=== PATIENT | male | born 1985 | race Caucasian/White ===

== ENCOUNTER 2016-09-30 14:23 | Emergency (ER) | payer MEDICAID, OTHER ==
[~2016-09-30] VITALS: Ht 182.9 cm; Wt 136.0 kg
[~2016-09-30 14:23] MED LIST: METF500T4; RISP1
[2016-09-30 18:07] VITALS: BP 149/67
== END 2016-09-30 18:41 | disposition left against medical advice (07) ==
LOC: ER 14:42
DX: F91.9 Conduct disorder, unspecified (principal); F43.10 Post-traumatic stress disorder, unspecified; R56.9 Unspecified convulsions; F17.200 Nicotine dependence, unspecified, uncomplicated; F15.10 Other stimulant abuse, uncomplicated
CPT/HCPCS: 99284

== ENCOUNTER 2016-11-24 12:16 | Emergency (ER) | payer OTHER ==
[~2016-11-24] VITALS: Ht 175.3 cm; Wt 148.0 kg
[2016-11-24 14:18] LABS: CLARITY URINE CLEAR (CLEAR); COLOR URINE YELLOW (YELLOW); GLUCOSE URINE NEGATIVE (NEGATIVE); KETONES URINE NEGATIVE (NEGATIVE); LEUKOCYTE ESTERASE URINE TRACE (NEGATIVE); NITRITE URINE NEGATIVE (NEGATIVE); OCCULT BLOOD URINE NEGATIVE (NEGATIVE); PROTEIN URINE NEGATIVE (NEGATIVE); SPECIFIC GRAVITY URINE 1.026 (1.005-1.030); UROBILINOGEN URINE 0.2 E.U./dL (0.2-1.0)
[2016-11-24 14:57] LABS: *AMPHETAMINES SCREEN URINE NEGATIVE (NEGATIVE); *BARBITURATES SCREEN URINE NEGATIVE (NEGATIVE); *BENZODIAZEPINES SCREEN URINE NEGATIVE (NEGATIVE); *COCAINE SCREEN URINE NEGATIVE (NEGATIVE); CANNABINOID URINE SCREEN NEGATIVE (NEGATIVE); METHADONE URINE SCREEN NEGATIVE (NEGATIVE); OPIATES URINE SCREEN NEGATIVE (NEGATIVE); PHENCYCLIDINE URINE SCREEN NEGATIVE (NEGATIVE)
[2016-11-24 16:07] LABS: BASOPHILS % 0.2 % (0.0-2.0); HEMATOCRIT. 44.5 % (42.0-52.0); LYMPHOCYTES % 19.8 % (20.0-50.0); MEAN CORPUSCULAR HEMOGLOBIN 30.8 pg (28.0-32.0); MEAN PLATELET VOLUME 9.9 fl (7.4-10.4); MONOCYTES % 7.1 % (2.0-8.0); NEUTROPHILS % 70.9 % (40.0-76.0); PLATELET 187 x1000/uL (130-400); RED BLOOD CELL COUNT 4.89 mill/uL (4.7-6.1); RED CELL DISTRIBUTION WIDTH 13.8 % (11.6-14.6)
[2016-11-24 16:26] LABS: CARBON DIOXIDE 29 mEq/L (21-32); CHLORIDE 108 mEq/L (98-107); ETHANOL BLOOD < 10 mg/dL
[2016-11-25 09:19] VITALS: BP 135/72
== END 2016-11-25 10:39 | disposition home or self-care (01) ==
LOC: ER 12:26
DX: R44.1 Visual hallucinations (principal); N39.0 Urinary tract infection, site not specified; Z59.0 Homelessness; F15.10 Other stimulant abuse, uncomplicated; Z91.09 Other allergy status, other than to drugs and biological substances
CPT/HCPCS: 36415; 80053; 80305; 80307; 80329; 81001; 85025; 99284; G0482

== ENCOUNTER 2016-11-30 05:49 | Emergency (ER) | payer SELFPAY ==
[~2016-11-30] VITALS: Ht 188 cm; Wt 160.0 kg
[2016-11-30 08:52] LABS: BASOPHILS % 0.1 % (0.0-2.0); EOSINOPHILS % 1.7 % (0.0-5.0); HEMATOCRIT. 44.2 % (42.0-52.0); HEMOGLOBIN. 14.7 g/dL (14.0-18.0); LYMPHOCYTES % 14.9 % (20.0-50.0); MEAN CORPUSCULAR HEMOGLOBIN 29.9 pg (28.0-32.0); MEAN CORPUSCULAR VOLUME 89.7 fL (80.0-94.0); MEAN PLATELET VOLUME 9.3 fl (7.4-10.4); MONOCYTES % 6.2 % (2.0-8.0); NEUTROPHILS % 77.1 % (40.0-76.0); PLATELET 208 x1000/uL (130-400); RED BLOOD CELL COUNT 4.93 mill/uL (4.7-6.1); RED CELL DISTRIBUTION WIDTH 13.8 % (11.6-14.6)
[2016-11-30 08:56] LABS: CHLORIDE 103 mEq/L (98-107)
[2016-11-30 08:58] LABS: PROTHROMBIN TIME 10.9 sec
[2016-11-30 09:04] LABS: CARBON DIOXIDE 34 mEq/L (21-32)
[2016-11-30 09:52] LABS: CLARITY URINE CLEAR (CLEAR); COLOR URINE YELLOW (YELLOW); KETONES URINE NEGATIVE (NEGATIVE); LEUKOCYTE ESTERASE URINE NEGATIVE (NEGATIVE); NITRITE URINE NEGATIVE (NEGATIVE); OCCULT BLOOD URINE NEGATIVE (NEGATIVE); PH URINE 6.5 (4.5-8.0); PROTEIN URINE NEGATIVE (NEGATIVE); SPECIFIC GRAVITY URINE 1.015 (1.005-1.030); UROBILINOGEN URINE 0.2 E.U./dL (0.2-1.0)
[2016-11-30 10:19] VITALS: BP 124/71
== END 2016-11-30 10:40 | disposition home or self-care (01) ==
LOC: ER 05:49
DX: T69.022A Immersion foot, left foot, initial encounter (principal); R56.9 Unspecified convulsions; M54.2 Cervicalgia; F17.200 Nicotine dependence, unspecified, uncomplicated; Z59.0 Homelessness; Z88.8 Allergy status to other drugs, medicaments and biological substances; W18.39XA Other fall on same level, initial encounter; Y93.89 Activity, other specified; Y92.89 Other specified places as the place of occurrence of the external cause; Y99.8 Other external cause status
CPT/HCPCS: 36415; 71010; 80053; 81003; 83605; 83690; 85025; 85610; 99285; Z7610

== ENCOUNTER 2016-12-14 12:33 | Emergency (ER) | payer SELFPAY ==
[~2016-12-14] VITALS: Ht 177.8 cm; Wt 120.0 kg
[2016-12-14 13:43] VITALS: BP 125/68
== END 2016-12-14 13:44 | disposition home or self-care (01) ==
LOC: ER 12:50
DX: M79.605 Pain in left leg (principal); M79.604 Pain in right leg; E66.9 Obesity, unspecified; F20.9 Schizophrenia, unspecified; R20.0 Anesthesia of skin; Z59.0 Homelessness; Z88.8 Allergy status to other drugs, medicaments and biological substances
CPT/HCPCS: 99284

== ENCOUNTER 2018-06-09 21:47 | Emergency (ER) | payer MEDICAID ==
[~2018-06-09] VITALS: Ht 185.4 cm; Wt 146.0 kg
[~2018-06-09 21:47] MED LIST changes: +METF-414; -METF500T4
[2018-06-10 00:01] LABS: BASOPHILS % 0.4 % (0.0-2.0); EOSINOPHILS % 1.9 % (0.0-5.0); HEMATOCRIT. 45.4 % (42.0-52.0); HEMOGLOBIN. 15.1 g/dL (14.0-18.0); LYMPHOCYTES % 18.6 % (20.0-50.0); MEAN CORPUSCULAR HEMOGLOBIN 31.3 pg (28.0-32.0); MEAN CORPUSCULAR VOLUME 94.1 fL (80.0-94.0); MEAN PLATELET VOLUME 8.9 fl (7.4-10.4); MONOCYTES % 9.7 % (2.0-8.0); NEUTROPHILS % 69.4 % (40.0-76.0); PLATELET 193 x1000/uL (130-400); RED BLOOD CELL COUNT 4.83 mill/uL (4.7-6.1); RED CELL DISTRIBUTION WIDTH 14.6 % (11.6-14.6)
[2018-06-10 00:23] LABS: CHLORIDE 105 mEq/L (98-107)
[2018-06-10 00:28] LABS: ETHANOL BLOOD < 10 mg/dL
[2018-06-10] MEDS ORDERED: LORAZEPAM 1MG TABLET PO ONE (00:30)
[2018-06-10] MEDS ORDERED: BUSPIRONE HCL 10MG TABLET PO ONE (00:30)
[2018-06-10] MEDS ORDERED: SODIUM CHLORIDE 0.9% 1,000 ML IV ONE (00:38)
[2018-06-10] MEDS ORDERED: PHENYTOIN SODIUM 1,000 MG in SODIUM CHLORIDE 0.9% 100 ML IV ONE (01:00)
[2018-06-10 02:46] LABS: *BENZODIAZEPINES SCREEN URINE NEGATIVE (NEGATIVE); *COCAINE SCREEN URINE NEGATIVE (NEGATIVE)
[2018-06-10 02:47] LABS: *AMPHETAMINES SCREEN URINE NEGATIVE (NEGATIVE); *BARBITURATES SCREEN URINE NEGATIVE (NEGATIVE); CANNABINOID URINE SCREEN PRESUMTIVE POSITIVE (NEGATIVE); METHADONE URINE SCREEN NEGATIVE (NEGATIVE); OPIATES URINE SCREEN NEGATIVE (NEGATIVE); PHENCYCLIDINE URINE SCREEN NEGATIVE (NEGATIVE)
[2018-06-10 08:00] VITALS: BP 125/70
== END 2018-06-10 10:43 | disposition home or self-care (01) ==
LOC: ER 21:47
DX: R45.851 Suicidal ideations (principal); F31.89 Other bipolar disorder; E66.01 Morbid (severe) obesity due to excess calories; R56.9 Unspecified convulsions; R03.0 Elevated blood-pressure reading, without diagnosis of hypertension; F43.10 Post-traumatic stress disorder, unspecified; V89.2XXD Person injured in unspecified motor-vehicle accident, traffic, subsequent encounter; Z88.8 Allergy status to other drugs, medicaments and biological substances; Z91.19 Patient's noncompliance with other medical treatment and regimen
CPT/HCPCS: 36415; 80048; 80185; 80305; 80307; 80329; 85025; 96365; 99284; G0482; J1165; J7030; J7050

== ENCOUNTER 2018-11-18 14:10 | Emergency (ER) | payer MEDICAID ==
[~2018-11-18] VITALS: Ht 182.9 cm; Wt 160.0 kg
[2018-11-18 15:59] LABS: CHLORIDE 106 mEq/L (98-107)
[2018-11-18 16:02] LABS: BASOPHILS % 0.5 % (0.0-2.0); EOSINOPHILS % 3.4 % (0.0-5.0); HEMATOCRIT. 41.7 % (42.0-52.0); HEMOGLOBIN. 14.3 g/dL (14.0-18.0); LYMPHOCYTES % 18.6 % (20.0-50.0); MEAN PLATELET VOLUME 9.4 fl (7.4-10.4); MONOCYTES % 6.4 % (2.0-8.0); NEUTROPHILS % 71.1 % (40.0-76.0); PLATELET 193 x1000/uL (130-400); RED BLOOD CELL COUNT 4.48 mill/uL (4.7-6.1)
[2018-11-18 16:04] LABS: ETHANOL BLOOD < 10 mg/dL
[2018-11-18 17:05] LABS: *AMPHETAMINES SCREEN URINE NEGATIVE (NEGATIVE); *BARBITURATES SCREEN URINE NEGATIVE (NEGATIVE); *BENZODIAZEPINES SCREEN URINE NEGATIVE (NEGATIVE); *COCAINE SCREEN URINE NEGATIVE (NEGATIVE); CANNABINOID URINE SCREEN PRESUMTIVE POSITIVE (NEGATIVE)
[2018-11-18 17:06] LABS: METHADONE URINE SCREEN NEGATIVE (NEGATIVE); OPIATES URINE SCREEN NEGATIVE (NEGATIVE); PHENCYCLIDINE URINE SCREEN NEGATIVE (NEGATIVE)
[2018-11-19 11:20] VITALS: BP 147/76
== END 2018-11-19 11:22 | disposition home or self-care (01) ==
LOC: ER 14:10
DX: R45.851 Suicidal ideations (principal); F32.9 Major depressive disorder, single episode, unspecified; Z59.0 Homelessness; Z88.8 Allergy status to other drugs, medicaments and biological substances
CPT/HCPCS: 36415; 80048; 80305; 80307; 80320; 80329; 85025; 99284; Z7610; G0480

== ENCOUNTER 2018-12-19 12:35 | Emergency (ER) | payer MEDICAID ==
[~2018-12-19] VITALS: Ht 182.9 cm; Wt 167.0 kg
[~2018-12-19 12:35] MED LIST changes: +PHEN100C4 PO
[2018-12-19] MEDS ORDERED: SODIUM CHLORIDE 0.9% 1,000 ML IV ONE (12:50)
[2018-12-19] MEDS ORDERED: ONDANSETRON 4MG ODT PO STA (12:50)
[2018-12-19] MEDS ORDERED: MECLIZINE 25MG TABLET PO ONE (13:00)
[2018-12-19 13:52] LABS: BASOPHILS % 0.4 % (0.0-2.0); EOSINOPHILS % 0.6 % (0.0-5.0); HEMATOCRIT. 46.1 % (42.0-52.0); HEMOGLOBIN. 15.6 g/dL (14.0-18.0); LYMPHOCYTES % 10.6 % (20.0-50.0); MEAN CORPUSCULAR HEMOGLOBIN 31.6 pg (28.0-32.0); MEAN CORPUSCULAR VOLUME 93.6 fL (80.0-94.0); MEAN PLATELET VOLUME 9.8 fl (7.4-10.4); MONOCYTES % 7.5 % (2.0-8.0); NEUTROPHILS % 80.9 % (40.0-76.0); PLATELET 233 x1000/uL (130-400); RED BLOOD CELL COUNT 4.93 mill/uL (4.7-6.1); RED CELL DISTRIBUTION WIDTH 13.8 % (11.6-14.6)
[2018-12-19 13:57] LABS: CHLORIDE 102 mEq/L (98-107)
[2018-12-19 13:59] LABS: PARTIAL THROMBOPLASTIN TIME 29.8 sec (23.4-31.0); PROTHROMBIN TIME 10.7 sec (9.6-11.0)
[2018-12-19 13:59] LABS: CLARITY URINE CLOUDY (CLEAR); COLOR URINE YELLOW (YELLOW); KETONES URINE TRACE (NEGATIVE); LEUKOCYTE ESTERASE URINE TRACE (NEGATIVE); NITRITE URINE NEGATIVE (NEGATIVE); OCCULT BLOOD URINE NEGATIVE (NEGATIVE); PROTEIN URINE TRACE (NEGATIVE); SPECIFIC GRAVITY URINE 1.028 (1.005-1.030)
[2018-12-19 14:05] LABS: ETHANOL BLOOD < 10 mg/dL
[2018-12-19 14:20] LABS: *AMPHETAMINES SCREEN URINE PRESUMTIVE POSITIVE (NEGATIVE); *BARBITURATES SCREEN URINE NEGATIVE (NEGATIVE); *BENZODIAZEPINES SCREEN URINE NEGATIVE (NEGATIVE); *COCAINE SCREEN URINE NEGATIVE (NEGATIVE); METHADONE URINE SCREEN NEGATIVE (NEGATIVE); OPIATES URINE SCREEN NEGATIVE (NEGATIVE); PHENCYCLIDINE URINE SCREEN NEGATIVE (NEGATIVE)
[2018-12-19 14:21] LABS: CANNABINOID URINE SCREEN PRESUMTIVE POSITIVE (NEGATIVE)
[2018-12-19] MEDS ORDERED: POTASSIUM CHLORIDE 20MEQ TABLET SR PO ONE (14:45)
[2018-12-19] MEDS ORDERED: PHENYTOIN SODIUM 1,000 MG in SODIUM CHLORIDE 0.9% 100 ML IV ONE (14:45)
[2018-12-19 17:20] VITALS: BP 145/68
== END 2018-12-19 17:30 | disposition home or self-care (01) ==
LOC: ER 12:35
DX: R42 Dizziness and giddiness (principal); R11.10 Vomiting, unspecified; F15.10 Other stimulant abuse, uncomplicated; E87.6 Hypokalemia; E66.9 Obesity, unspecified; R03.0 Elevated blood-pressure reading, without diagnosis of hypertension; J45.909 Unspecified asthma, uncomplicated; R56.9 Unspecified convulsions; Z91.19 Patient's noncompliance with other medical treatment and regimen
CPT/HCPCS: 36415; 70450; 71045; 80053; 80185; 80305; 80320; 81003; 83880; 84484; 85025; 85610; 85730; 93005; 96361; 96365; 99284; J1165; J7030; J7050; J8597; Q0162; G0480

== ENCOUNTER 2018-12-24 22:42 | Emergency (ER) | payer MEDICAID ==
[~2018-12-24] VITALS: Ht 170.2 cm; Wt 159.0 kg
[2018-12-24 23:50] LABS: CLARITY URINE CLEAR (CLEAR); COLOR URINE DARK YELLOW (YELLOW); KETONES URINE TRACE (NEGATIVE); LEUKOCYTE ESTERASE URINE NEGATIVE (NEGATIVE); NITRITE URINE NEGATIVE (NEGATIVE); OCCULT BLOOD URINE NEGATIVE (NEGATIVE); PH URINE 5.5 (4.5-8.0); PROTEIN URINE 1+ (NEGATIVE); SPECIFIC GRAVITY URINE 1.037 (1.005-1.030)
[2018-12-24 23:57] LABS: BASOPHILS % 0.4 % (0.0-2.0); EOSINOPHILS % 1.1 % (0.0-5.0); HEMATOCRIT. 42.6 % (42.0-52.0); HEMOGLOBIN. 14.5 g/dL (14.0-18.0); LYMPHOCYTES % 13.5 % (20.0-50.0); MEAN CORPUSCULAR HEMOGLOBIN 31.9 pg (28.0-32.0); MEAN CORPUSCULAR VOLUME 93.8 fL (80.0-94.0); MEAN PLATELET VOLUME 8.8 fl (7.4-10.4); MONOCYTES % 5.7 % (2.0-8.0); NEUTROPHILS % 79.3 % (40.0-76.0); PLATELET 246 x1000/uL (130-400); RED BLOOD CELL COUNT 4.54 mill/uL (4.7-6.1); RED CELL DISTRIBUTION WIDTH 13.5 % (11.6-14.6)
[2018-12-25 00:03] LABS: CHLORIDE 105 mEq/L (98-107)
[2018-12-25 00:07] LABS: ETHANOL BLOOD < 10 mg/dL
[2018-12-25 00:20] LABS: *AMPHETAMINES SCREEN URINE NEGATIVE (NEGATIVE); *BARBITURATES SCREEN URINE NEGATIVE (NEGATIVE); *BENZODIAZEPINES SCREEN URINE NEGATIVE (NEGATIVE); *COCAINE SCREEN URINE NEGATIVE (NEGATIVE); METHADONE URINE SCREEN NEGATIVE (NEGATIVE); OPIATES URINE SCREEN NEGATIVE (NEGATIVE); PHENCYCLIDINE URINE SCREEN NEGATIVE (NEGATIVE)
[2018-12-25 00:21] LABS: CANNABINOID URINE SCREEN PRESUMTIVE POSITIVE (NEGATIVE)
[2018-12-26] MEDS ORDERED: LORAZEPAM 2MG/ML CPJ IM STA (15:01)
[2018-12-26] MEDS ORDERED: OLANZAPINE 10 MG/VIAL IM STA (15:01)
[2018-12-27 12:14] VITALS: BP 134/62
[2018-12-27] MEDS ORDERED: LORAZEPAM 1MG TABLET PO ONE ×2 (15:00→17:30)
== END 2018-12-27 18:48 | disposition home or self-care (01) ==
LOC: ER 22:42
DX: R45.851 Suicidal ideations (principal); R44.0 Auditory hallucinations; F12.10 Cannabis abuse, uncomplicated; J45.909 Unspecified asthma, uncomplicated; R56.9 Unspecified convulsions; Z88.8 Allergy status to other drugs, medicaments and biological substances
CPT/HCPCS: 36415; 80305; 80320; 96372; 99284; G0480

== ENCOUNTER 2018-12-31 06:48 | Emergency (ER) | payer MEDICAID ==
[~2018-12-31] VITALS: Ht 170.2 cm; Wt 159.0 kg
[2018-12-31] MEDS ORDERED: PHENYTOIN SODIUM 1000MG in SODIUM CHLORIDE 0.9% 100ML IV ONE (07:30)
[2018-12-31 09:17] LABS: CLARITY URINE CLEAR (CLEAR); COLOR URINE YELLOW (YELLOW); KETONES URINE NEGATIVE (NEGATIVE); LEUKOCYTE ESTERASE URINE NEGATIVE (NEGATIVE); NITRITE URINE NEGATIVE (NEGATIVE); OCCULT BLOOD URINE NEGATIVE (NEGATIVE); PROTEIN URINE NEGATIVE (NEGATIVE); SPECIFIC GRAVITY URINE 1.028 (1.005-1.030); UROBILINOGEN URINE 0.2 E.U./dL (0.2-1.0)
[2018-12-31 09:52] LABS: *AMPHETAMINES SCREEN URINE NEGATIVE (NEGATIVE); *BARBITURATES SCREEN URINE NEGATIVE (NEGATIVE); *BENZODIAZEPINES SCREEN URINE NEGATIVE (NEGATIVE)
[2018-12-31 09:53] LABS: *COCAINE SCREEN URINE NEGATIVE (NEGATIVE); CANNABINOID URINE SCREEN PRESUMTIVE POSITIVE (NEGATIVE); METHADONE URINE SCREEN NEGATIVE (NEGATIVE); OPIATES URINE SCREEN NEGATIVE (NEGATIVE); PHENCYCLIDINE URINE SCREEN NEGATIVE (NEGATIVE)
[2018-12-31 10:27] LABS: BASOPHILS % 0.5 % (0.0-2.0); CHLORIDE 103 mEq/L (98-107); EOSINOPHILS % 1.5 % (0.0-5.0); HEMATOCRIT. 41.6 % (42.0-52.0); HEMOGLOBIN. 14.3 g/dL (14.0-18.0); LYMPHOCYTES % 18.9 % (20.0-50.0); MEAN CORPUSCULAR VOLUME 93.3 fL (80.0-94.0); MEAN PLATELET VOLUME 8.9 fl (7.4-10.4); MONOCYTES % 5.9 % (2.0-8.0); NEUTROPHILS % 73.2 % (40.0-76.0); PLATELET 254 x1000/uL (130-400); RED BLOOD CELL COUNT 4.46 mill/uL (4.7-6.1); RED CELL DISTRIBUTION WIDTH 13.9 % (11.6-14.6)
[2018-12-31 10:32] LABS: ETHANOL BLOOD < 10 mg/dL
[2018-12-31] MEDS ORDERED: PHENYTOIN SODIUM 500 MG in SODIUM CHLORIDE 0.9% 50 ML IV ONE (20:30)
[2019-01-01] MEDS ORDERED: LORAZEPAM 2MG/ML CPJ IV ONE (08:15)
[2019-01-01] MEDS ORDERED: PHENYTOIN SODIUM EXTENDED 100MG CAPSULE PO ONE (09:00)
[2019-01-01] MEDS ORDERED: HALOPERIDOL 5MG TABLET PO ONE (09:00)
[2019-01-01] MEDS ORDERED: PHENYTOIN SODIUM 1,500 MG in SODIUM CHLORIDE 0.9% 100 ML IV ONE (09:45)
[2019-01-01] MEDS ORDERED: PHENYTOIN SODIUM 1,500 MG in SODIUM CHLORIDE 0.9% 100 ML IV NR (09:45)
[2019-01-01] MEDS ORDERED: SODIUM CHLORIDE 0.9% 1000ML BAG (SEPSIS BOLUS) IV ONE (15:00)
[2019-01-02] MEDS ORDERED: PHENYTOIN SODIUM 500 MG in SODIUM CHLORIDE 0.9% 50 ML IV ONE (06:30)
[2019-01-02] MEDS ORDERED: PHENYTOIN SODIUM EXTENDED 100MG CAPSULE PO ONE (07:15)
[2019-01-02] MEDS ORDERED: LITHIUM CARBONATE 150 MG CAPSULE PO STA (10:21)
[2019-01-02 11:17] VITALS: BP 128/64
== END 2019-01-02 12:09 | disposition home or self-care (01) ==
LOC: ER 06:48
DX: R56.9 Unspecified convulsions (principal); F20.9 Schizophrenia, unspecified; F31.9 Bipolar disorder, unspecified; Z59.0 Homelessness
CPT/HCPCS: 36415; 80053; 80185; 80305; 80320; 81003; 85025; 96365; 96366; 96367; 96375; 99284; J1165; J7050; G0480

== ENCOUNTER 2019-01-06 20:45 | Emergency (ER) | payer MEDICAID ==
[~2019-01-06] VITALS: Ht 182.9 cm; Wt 136.0 kg
[2019-01-06] MEDS ORDERED: SODIUM CHLORIDE 0.9% 1,000 ML IV ONE (21:15)
[2019-01-06] MEDS ORDERED: ONDANSETRON HCL 4MG/2ML INJ IV STA (21:15)
[2019-01-06] MEDS ORDERED: LEVETIRACETAM 500MG PREMIX 100 ML IV ONE (21:15)
[2019-01-06 22:22] LABS: BASOPHILS % 0.4 % (0.0-2.0); EOSINOPHILS % 1.5 % (0.0-5.0); HEMATOCRIT. 42.7 % (42.0-52.0); HEMOGLOBIN. 14.3 g/dL (14.0-18.0); LYMPHOCYTES % 12.5 % (20.0-50.0); MEAN CORPUSCULAR HEMOGLOBIN 31.4 pg (28.0-32.0); MEAN CORPUSCULAR VOLUME 93.3 fL (80.0-94.0); MEAN PLATELET VOLUME 8.8 fl (7.4-10.4); MONOCYTES % 5.7 % (2.0-8.0); NEUTROPHILS % 79.9 % (40.0-76.0); PLATELET 263 x1000/uL (130-400); RED BLOOD CELL COUNT 4.57 mill/uL (4.7-6.1); RED CELL DISTRIBUTION WIDTH 13.6 % (11.6-14.6)
[2019-01-06 22:27] LABS: CHLORIDE 105 mEq/L (98-107)
[2019-01-06 22:30] LABS: ETHANOL BLOOD < 10 mg/dL
[2019-01-06 22:34] LABS: CREATINE KINASE 58 IU/L (39-308)
[2019-01-06 22:36] LABS: CARBAMAZEPINE < 0.5 ug/mL (4-12); PHENOBARBITAL < 2.1 ug/mL (15.0-40.0); VALPROIC ACID < 3.0 ug/mL (50-100)
[2019-01-06 22:39] LABS: CLARITY URINE TURBID (CLEAR); COLOR URINE YELLOW (YELLOW); KETONES URINE TRACE (NEGATIVE); LEUKOCYTE ESTERASE URINE NEGATIVE (NEGATIVE); NITRITE URINE NEGATIVE (NEGATIVE); OCCULT BLOOD URINE NEGATIVE (NEGATIVE); PH URINE 5.5 (4.5-8.0); PROTEIN URINE TRACE (NEGATIVE); SPECIFIC GRAVITY URINE 1.028 (1.005-1.030)
[2019-01-06 23:06] LABS: *COCAINE SCREEN URINE NEGATIVE (NEGATIVE)
[2019-01-06 23:07] LABS: *AMPHETAMINES SCREEN URINE NEGATIVE (NEGATIVE); *BARBITURATES SCREEN URINE NEGATIVE (NEGATIVE); *BENZODIAZEPINES SCREEN URINE NEGATIVE (NEGATIVE); CANNABINOID URINE SCREEN PRESUMTIVE POSITIVE (NEGATIVE); METHADONE URINE SCREEN NEGATIVE (NEGATIVE); OPIATES URINE SCREEN NEGATIVE (NEGATIVE); PHENCYCLIDINE URINE SCREEN NEGATIVE (NEGATIVE)
[2019-01-07] MEDS ORDERED: CLOTRIMAZOLE/BETAMETHASONE 1/0.05% CREAM 15GM TOP SCH (09:00)
[2019-01-07 14:30] VITALS: BP 120/68
== END 2019-01-07 14:30 | disposition home or self-care (01) ==
LOC: ER 20:45
DX: R56.9 Unspecified convulsions (principal); N39.0 Urinary tract infection, site not specified; E86.0 Dehydration; F12.10 Cannabis abuse, uncomplicated; B37.9 Candidiasis, unspecified; F17.210 Nicotine dependence, cigarettes, uncomplicated; Z59.0 Homelessness; Z88.8 Allergy status to other drugs, medicaments and biological substances; Z91.14 Patient's other noncompliance with medication regimen
CPT/HCPCS: 36415; 80053; 80156; 80165; 80184; 80185; 80305; 80320; 81003; 82140; 82550; 84443; 85025; 93005; 96365; 96375; 99284; J1953; J2405; J7030; G0480

== ENCOUNTER 2019-01-15 19:59 | Emergency (ER) | payer MEDICAID ==
[~2019-01-15] VITALS: Ht 188 cm; Wt 137.0 kg
[2019-01-16 07:42] VITALS: BP 111/62
== END 2019-01-16 10:35 | disposition home or self-care (01) ==
LOC: ER 19:59
DX: F32.9 Major depressive disorder, single episode, unspecified (principal); F20.9 Schizophrenia, unspecified; R56.9 Unspecified convulsions; F15.10 Other stimulant abuse, uncomplicated; F17.290 Nicotine dependence, other tobacco product, uncomplicated; Z76.5 Malingerer [conscious simulation]; Z88.8 Allergy status to other drugs, medicaments and biological substances; Z79.899 Other long term (current) drug therapy
CPT/HCPCS: 99284; 99406

== ENCOUNTER 2019-02-13 19:19 | Emergency (ER) | payer MEDICAID ==
[~2019-02-13] VITALS: Ht 177.8 cm; Wt 114.0 kg
[2019-02-13 20:30] VITALS: BP 141/79
[2019-02-13] MEDS ORDERED: KETOROLAC 60MG/2ML VIAL IM STA (22:21)
[2019-02-13] MEDS ORDERED: CYCLOBENZAPRINE 10MG TABLET PO ONE (22:30)
== END 2019-02-13 22:45 | disposition left against medical advice (07) ==
LOC: ER 21:03
DX: M54.5 Low back pain (principal); G40.909 Epilepsy, unspecified, not intractable, without status epilepticus; R30.0 Dysuria; E11.9 Type 2 diabetes mellitus without complications; F31.9 Bipolar disorder, unspecified; F17.200 Nicotine dependence, unspecified, uncomplicated; Z88.8 Allergy status to other drugs, medicaments and biological substances
CPT/HCPCS: 99283

== ENCOUNTER 2019-03-31 00:24 | Emergency (ER) | payer MEDICAID ==
[~2019-03-31] VITALS: Ht 182.9 cm; Wt 136.0 kg
[2019-03-31] MEDS ORDERED: PREDNISONE 20MG TABLET PO STA (01:09)
[2019-03-31] MEDS ORDERED: ALBUTEROL (0.083%) 2.5MG/3ML NEB HHN STA (01:09)
[2019-03-31] MEDS ORDERED: IPRATROPIUM BROMIDE (0.02%) 0.5MG/2.5ML NEB HHN STA (01:09)
[2019-03-31 05:00] VITALS: BP 111/54
== END 2019-03-31 05:08 | disposition home or self-care (01) ==
LOC: ER 00:24
DX: J45.901 Unspecified asthma with (acute) exacerbation (principal); F31.9 Bipolar disorder, unspecified; E11.9 Type 2 diabetes mellitus without complications; Z88.8 Allergy status to other drugs, medicaments and biological substances; Z79.899 Other long term (current) drug therapy
CPT/HCPCS: 71045; 93005; 94640; 99283; J7512; Z7610

== ENCOUNTER 2019-05-22 19:17 | Emergency (ER) | payer MEDICAID ==
[~2019-05-22] VITALS: Ht 182.9 cm; Wt 165.0 kg
[2019-05-22] MEDS ORDERED: IPRATROPIUM BROMIDE (0.02%) 0.5MG/2.5ML NEB HHN STA (20:56)
[2019-05-22] MEDS ORDERED: ALBUTEROL (0.083%) 2.5MG/3ML NEB HHN STA (20:56)
[2019-05-22] MEDS ORDERED: METHYLPREDNISOLONE SOD SUCC 125 MG/2 ML VIAL IV STA (20:56)
[2019-05-22] MEDS ORDERED: SODIUM CHLORIDE 0.9% 1,000 ML IV ONE (20:56)
[2019-05-22 22:14] LABS: BASOPHILS % 0.4 % (0.0-2.0); EOSINOPHILS % 1.2 % (0.0-5.0); HEMATOCRIT. 44.7 % (42.0-52.0); HEMOGLOBIN. 15.1 g/dL (14.0-18.0); LYMPHOCYTES % 23.4 % (20.0-50.0); MEAN CORPUSCULAR HEMOGLOBIN 31.1 pg (28.0-32.0); MEAN CORPUSCULAR VOLUME 92.3 fL (80.0-94.0); PLATELET 217 x1000/uL (130-400); RED BLOOD CELL COUNT 4.84 mill/uL (4.7-6.1); RED CELL DISTRIBUTION WIDTH 14.7 % (11.6-14.6)
[2019-05-22 22:16] LABS: CHLORIDE 107 mEq/L (98-107)
[2019-05-22 22:21] LABS: ETHANOL BLOOD < 10 mg/dL
[2019-05-23] MEDS ORDERED: ALBUTEROL (0.083%) 2.5MG/3ML NEB HHN STA (00:08)
[2019-05-23] MEDS ORDERED: MAGNESIUM 2 G PREMIX 50 ML IV ONE (01:45)
[2019-05-23] MEDS ORDERED: ASPIRIN 81MG TABLET PO ONE (01:45)
[2019-05-23] MEDS ORDERED: LEVOFLOXACIN 750MG PREMIX 150 ML IV ONE (01:45)
[2019-05-23] MEDS ORDERED: SODIUM CHLORIDE 0.9% 1000ML BAG (SEPSIS BOLUS) IV ONE (01:45)
[2019-05-23] MEDS ORDERED: CITALOPRAM HYDROBROMIDE 10MG TABLET PO ONE (04:00)
[2019-05-23] MEDS ORDERED: PHENYTOIN 100 MG/4 ML UDC NG ONE (04:00)
[2019-05-23] MEDS: RISPERIDONE 1MG TABLET PO SCH ×2 (04:16→09:20)
[2019-05-23 05:23] LABS: CLARITY URINE CLOUDY (CLEAR); COLOR URINE DARK YELLOW (YELLOW); KETONES URINE 1+ (NEGATIVE); LEUKOCYTE ESTERASE URINE TRACE (NEGATIVE); NITRITE URINE NEGATIVE (NEGATIVE); OCCULT BLOOD URINE NEGATIVE (NEGATIVE); PH URINE 5.5 (4.5-8.0); PROTEIN URINE TRACE (NEGATIVE); SPECIFIC GRAVITY URINE 1.027 (1.005-1.030)
[2019-05-23] MEDS ORDERED: LORAZEPAM 2MG/ML CPJ IV ONE (05:45)
[2019-05-23 05:58] LABS: *AMPHETAMINES SCREEN URINE NEGATIVE (NEGATIVE); *BARBITURATES SCREEN URINE NEGATIVE (NEGATIVE); *BENZODIAZEPINES SCREEN URINE NEGATIVE (NEGATIVE); *COCAINE SCREEN URINE NEGATIVE (NEGATIVE)
[2019-05-23 05:59] LABS: CANNABINOID URINE SCREEN PRESUMTIVE POSITIVE (NEGATIVE); METHADONE URINE SCREEN NEGATIVE (NEGATIVE); OPIATES URINE SCREEN NEGATIVE (NEGATIVE); PHENCYCLIDINE URINE SCREEN NEGATIVE (NEGATIVE)
[2019-05-23] MEDS ORDERED: LORAZEPAM 2MG/ML CPJ IV PRN (11:30)
[2019-05-23] MEDS ORDERED: ONDANSETRON HCL 4MG/2ML INJ IV PRN (11:30)
[2019-05-23] MEDS ORDERED: ACETAMINOPHEN 325MG TABLET PO PRN (11:30)
[2019-05-23] MEDS ORDERED: LEVOFLOXACIN 500MG PREMIX 100 ML IV SCH (11:30)
[2019-05-23] MEDS ORDERED: ENOXAPARIN 40MG/0.4ML SYR SUBCUT SCH (11:30)
[2019-05-23] MEDS ORDERED: CLONIDINE 0.1MG TABLET PO PRN (11:30)
[2019-05-23] MEDS ORDERED: DEXTROSE 50% WATER 50ML SYRINGE IV PRN (11:45)
[2019-05-23] MEDS ORDERED: ENOXAPARIN 40MG/0.4ML SYR SUBCUT NR (12:15)
[2019-05-23] MEDS: SODIUM CHLORIDE 0.9% 1,000 ML IV SCH (12:27)
[2019-05-23] MEDS: BLOOD SUGAR DIAGNOSTIC STRIP TEST SCH ×2 (13:00→17:50)
[2019-05-23] MEDS: INSULIN LISPRO 100 UNITS/ML SUBCUT SCH ×2 (13:20→19:08)
[2019-05-23] MEDS: IPRATROPIUM/ALBUTEROL 0.5-3(2.5)MG/3ML NEB HHN SCH ×2 (14:28→15:30)
[2019-05-23] MEDS: METHYLPREDNISOLONE SOD SUCC 125 MG/2 ML VIAL IV SCH ×2 (14:33→23:13)
[2019-05-23] MEDS ORDERED: PHENYTOIN SODIUM EXTENDED 100MG CAPSULE PO NR (17:15)
[2019-05-24] MEDS: SODIUM CHLORIDE 0.9% 1,000 ML IV SCH (03:00)
[2019-05-24] MEDS: METHYLPREDNISOLONE SOD SUCC 125 MG/2 ML VIAL IV SCH (06:31)
[2019-05-24 08:23] VITALS: BP 135/53
[2019-05-24] MEDS ORDERED: PHENYTOIN SODIUM EXTENDED 100MG CAPSULE PO SCH (09:00)
[2019-05-24] MEDS ORDERED: RISPERIDONE 1MG TABLET PO SCH (21:00)
== END 2019-05-24 10:42 | disposition left against medical advice (07) ==
LOC: ER 19:17 → CANRESERV 05-24 07:15 → ENRESERV 05-24 07:15 → CANBEDREQ 05-24 08:35 → ER 05-24 10:42
DX: J45.909 Unspecified asthma, uncomplicated (principal); J20.9 Acute bronchitis, unspecified; R09.02 Hypoxemia; R45.851 Suicidal ideations; F32.9 Major depressive disorder, single episode, unspecified; F20.9 Schizophrenia, unspecified; F17.200 Nicotine dependence, unspecified, uncomplicated; Z88.8 Allergy status to other drugs, medicaments and biological substances
CPT/HCPCS: 36415; 71045; 80053; 80307; 80320; 80329; 84484; 85025; 93005; 94640; 94644; 96365; 96366; 96368; 96372; 96375; 99285; J1650; J1815; J1956; J2060; J2930; J3475; J7030; J7611; J7620; Z7610; G0480

== ENCOUNTER 2019-08-23 10:50 | Emergency (ER) | payer MEDICAID ==
[~2019-08-23] VITALS: Ht 182.9 cm; Wt 152.9 kg
[2019-08-23 13:09] VITALS: BP 148/87
== END 2019-08-23 13:11 | disposition home or self-care (01) ==
LOC: ER 10:50
DX: B02.9 Zoster without complications (principal); L03.317 Cellulitis of buttock; F20.9 Schizophrenia, unspecified; F32.9 Major depressive disorder, single episode, unspecified; F43.10 Post-traumatic stress disorder, unspecified; F12.10 Cannabis abuse, uncomplicated; Z98.890 Other specified postprocedural states; Z88.8 Allergy status to other drugs, medicaments and biological substances
CPT/HCPCS: 99283

== ENCOUNTER 2019-10-01 17:47 | Emergency (ER) | payer MEDICAID ==
[~2019-10-01] VITALS: Ht 188 cm; Wt 99.4 kg
[2019-10-01 18:06] VITALS: BP 124/71
[2019-10-01] MEDS ORDERED: ONDANSETRON 4MG ODT PO STA (18:33)
[2019-10-01 18:55] LABS: CLARITY URINE CLEAR (CLEAR); COLOR URINE YELLOW (YELLOW); KETONES URINE NEGATIVE (NEGATIVE); LEUKOCYTE ESTERASE URINE TRACE (NEGATIVE); NITRITE URINE NEGATIVE (NEGATIVE); OCCULT BLOOD URINE NEGATIVE (NEGATIVE); PH URINE 6.5 (4.5-8.0); PROTEIN URINE NEGATIVE (NEGATIVE); SPECIFIC GRAVITY URINE 1.021 (1.005-1.030)
[2019-10-01 20:28] LABS: BASOPHILS % 0.5 % (0.0-2.0); EOSINOPHILS % 2.4 % (0.0-5.0); HEMATOCRIT. 45.9 % (42.0-52.0); HEMOGLOBIN. 15.6 g/dL (14.0-18.0); LYMPHOCYTES % 24.9 % (20.0-50.0); MEAN CORPUSCULAR HEMOGLOBIN 31.4 pg (28.0-32.0); MEAN CORPUSCULAR VOLUME 92.6 fL (80.0-94.0); MEAN PLATELET VOLUME 9.6 fl (7.4-10.4); MONOCYTES % 8.8 % (2.0-8.0); NEUTROPHILS % 63.4 % (40.0-76.0); PLATELET 199 x1000/uL (130-400); RED BLOOD CELL COUNT 4.95 mill/uL (4.7-6.1); RED CELL DISTRIBUTION WIDTH 14.9 % (11.6-14.6)
[2019-10-01 20:33] LABS: PROTHROMBIN TIME 10.7 sec (9.6-11.0)
[2019-10-01 20:39] LABS: CHLORIDE 107 mEq/L (98-107)
== END 2019-10-01 21:13 | disposition home or self-care (01) ==
LOC: ER 17:47
DX: N39.0 Urinary tract infection, site not specified (principal); R11.2 Nausea with vomiting, unspecified; R06.02 Shortness of breath; F31.9 Bipolar disorder, unspecified; F20.9 Schizophrenia, unspecified; F12.10 Cannabis abuse, uncomplicated; Z79.899 Other long term (current) drug therapy
CPT/HCPCS: 36415; 71045; 80053; 81003; 83690; 85025; 85610; 99284; Q0162

== ENCOUNTER 2020-08-31 21:08 | Emergency (ER) | payer MEDICAID ==
[~2020-08-31] VITALS: Ht 188 cm; Wt 135.0 kg
[2020-08-31] MEDS ORDERED: ACETAMINOPHEN 500MG TABLET PO ONE (22:45)
[2020-08-31 23:15] VITALS: BP 130/72
== END 2020-08-31 23:27 | disposition home or self-care (01) ==
LOC: ER 21:08
DX: S09.8XXA Other specified injuries of head, initial encounter (principal); R07.89 Other chest pain; R51.9 Headache, unspecified; R56.9 Unspecified convulsions; F43.10 Post-traumatic stress disorder, unspecified; F20.9 Schizophrenia, unspecified; F32.9 Major depressive disorder, single episode, unspecified; Y08.89XA Assault by other specified means, initial encounter; Y93.89 Activity, other specified; Y92.9 Unspecified place or not applicable; Z88.8 Allergy status to other drugs, medicaments and biological substances
CPT/HCPCS: 71045; 99284

== ENCOUNTER 2020-10-19 02:10 | Emergency (ER) | payer MEDICAID ==
[~2020-10-19] VITALS: Ht 182.9 cm; Wt 145.0 kg
[2020-10-19 02:14] VITALS: BP 134/84
[2020-10-19] MEDS ORDERED: ACETAMINOPHEN 325MG TABLET PO ONE (04:00)
== END 2020-10-19 06:57 | disposition left against medical advice (07) ==
LOC: ER 02:10
DX: R51.9 Headache, unspecified (principal); F32.9 Major depressive disorder, single episode, unspecified; R56.9 Unspecified convulsions; F20.9 Schizophrenia, unspecified; Y08.89XA Assault by other specified means, initial encounter; Y93.89 Activity, other specified; Y92.410 Unspecified street and highway as the place of occurrence of the external cause
CPT/HCPCS: 99281; Z7610

== ENCOUNTER 2020-10-24 21:01 | Emergency (ER) | payer MEDICAID ==
[~2020-10-24] VITALS: Ht 182.9 cm; Wt 123.0 kg
[2020-10-24] MEDS ORDERED: IBUPROFEN 600MG TABLET PO STA (23:15)
[2020-10-24 23:41] LABS: BASOPHILS % 0.5 % (0.0-2.0); EOSINOPHILS % 1.9 % (0.0-5.0); HEMATOCRIT. 42.4 % (42.0-52.0); HEMOGLOBIN. 14.4 g/dL (14.0-18.0); LYMPHOCYTES % 18.4 % (20.0-50.0); MEAN CORPUSCULAR HEMOGLOBIN 31.2 pg (28.0-32.0); MEAN CORPUSCULAR VOLUME 91.5 fL (80.0-94.0); MEAN PLATELET VOLUME 9.1 fl (7.4-10.4); MONOCYTES % 9.2 % (2.0-8.0); PLATELET 212 x1000/uL (130-400); RED BLOOD CELL COUNT 4.63 mill/uL (4.7-6.1); RED CELL DISTRIBUTION WIDTH 14.5 % (11.6-14.6)
[2020-10-24 23:52] LABS: CHLORIDE 106 mEq/L (98-107)
[2020-10-24 23:57] LABS: ETHANOL BLOOD < 10 mg/dL
[2020-10-25] VITALS: BP 165/75
[2020-10-25 00:53] LABS: *AMPHETAMINES SCREEN URINE PRESUMTIVE POSITIVE (NEGATIVE); *BARBITURATES SCREEN URINE NEGATIVE (NEGATIVE); *BENZODIAZEPINES SCREEN URINE NEGATIVE (NEGATIVE); *COCAINE SCREEN URINE NEGATIVE (NEGATIVE); METHADONE URINE SCREEN NEGATIVE (NEGATIVE); OPIATES URINE SCREEN NEGATIVE (NEGATIVE)
[2020-10-25 00:54] LABS: CANNABINOID URINE SCREEN NEGATIVE (NEGATIVE); PHENCYCLIDINE URINE SCREEN NEGATIVE (NEGATIVE)
== END 2020-10-25 01:16 | disposition left against medical advice (07) ==
LOC: ER 21:01
DX: R07.9 Chest pain, unspecified (principal); R56.9 Unspecified convulsions; F32.9 Major depressive disorder, single episode, unspecified; F20.9 Schizophrenia, unspecified; Z88.8 Allergy status to other drugs, medicaments and biological substances; Z86.73 Personal history of transient ischemic attack (TIA), and cerebral infarction without residual deficits
CPT/HCPCS: 36415; 71045; 80053; 80185; 80305; 80320; 84484; 85025; 93005; 99285; G0480

== ENCOUNTER 2020-10-25 07:34 | Emergency (ER) | payer MEDICAID ==
[~2020-10-25] VITALS: Ht 172.7 cm; Wt 150.0 kg
[2020-10-25] MEDS ORDERED: LORAZEPAM 1MG TABLET PO ONE (08:15)
[2020-10-25] MEDS ORDERED: CITALOPRAM HYDROBROMIDE 10MG TABLET PO ONE (08:15)
[2020-10-25 08:38] LABS: BASOPHILS % 0.3 % (0.0-2.0); EOSINOPHILS % 2.3 % (0.0-5.0); HEMATOCRIT. 44.8 % (42.0-52.0); HEMOGLOBIN. 14.9 g/dL (14.0-18.0); LYMPHOCYTES % 18.1 % (20.0-50.0); MEAN CORPUSCULAR HEMOGLOBIN 30.8 pg (28.0-32.0); MEAN CORPUSCULAR VOLUME 92.6 fL (80.0-94.0); MEAN PLATELET VOLUME 8.8 fl (7.4-10.4); MONOCYTES % 9.8 % (2.0-8.0); NEUTROPHILS % 69.5 % (40.0-76.0); PLATELET 184 x1000/uL (130-400); RED BLOOD CELL COUNT 4.84 mill/uL (4.7-6.1); RED CELL DISTRIBUTION WIDTH 14.5 % (11.6-14.6)
[2020-10-25 08:41] LABS: CHLORIDE 105 mEq/L (98-107)
[2020-10-25 08:45] LABS: ETHANOL BLOOD < 10 mg/dL
[2020-10-25 08:46] LABS: CLARITY URINE CLOUDY (CLEAR); COLOR URINE DARK YELLOW (YELLOW); KETONES URINE NEGATIVE (NEGATIVE); LEUKOCYTE ESTERASE URINE NEGATIVE (NEGATIVE); NITRITE URINE NEGATIVE (NEGATIVE); OCCULT BLOOD URINE NEGATIVE (NEGATIVE); PROTEIN URINE TRACE (NEGATIVE); SPECIFIC GRAVITY URINE 1.032 (1.005-1.030); UROBILINOGEN URINE 0.2 E.U./dL (0.2-1.0)
[2020-10-25 09:04] LABS: METHADONE URINE SCREEN NEGATIVE (NEGATIVE)
[2020-10-25 09:05] LABS: *BENZODIAZEPINES SCREEN URINE NEGATIVE (NEGATIVE); *COCAINE SCREEN URINE NEGATIVE (NEGATIVE); CANNABINOID URINE SCREEN NEGATIVE (NEGATIVE); OPIATES URINE SCREEN NEGATIVE (NEGATIVE); PHENCYCLIDINE URINE SCREEN NEGATIVE (NEGATIVE)
[2020-10-25 09:06] LABS: *AMPHETAMINES SCREEN URINE PRESUMTIVE POSITIVE (NEGATIVE); *BARBITURATES SCREEN URINE NEGATIVE (NEGATIVE)
[2020-10-26] MEDS ORDERED: LORAZEPAM 1MG TABLET PO ONE
[2020-10-26 12:36] VITALS: BP 140/65
== END 2020-10-26 12:44 | disposition home or self-care (01) ==
LOC: ER 07:34
DX: R45.851 Suicidal ideations (principal); F20.9 Schizophrenia, unspecified; F32.9 Major depressive disorder, single episode, unspecified; R56.9 Unspecified convulsions; Z86.73 Personal history of transient ischemic attack (TIA), and cerebral infarction without residual deficits; Z88.8 Allergy status to other drugs, medicaments and biological substances; Z20.822 Contact with and (suspected) exposure to COVID-19
CPT/HCPCS: 80053; 80305; 80307; 80320; 80329; 81003; 85025; 87426; 99285; Z7610; G0480

== ENCOUNTER 2020-11-14 21:00 | Emergency (ER) | payer MEDICAID ==
[~2020-11-14] VITALS: Ht 177.8 cm; Wt 137.0 kg
[2020-11-14] MEDS ORDERED: ACETAMINOPHEN 325MG TABLET PO ONE (22:30)
[2020-11-14] MEDS ORDERED: BACITRACIN ZINC OINT UDPKT TOP ONE (23:00)
[2020-11-14] MEDS ORDERED: ACET-2708 MT (23:49)
[2020-11-15 00:17] LABS: BASOPHILS % 0.6 % (0.0-2.0); EOSINOPHILS % 3.1 % (0.0-5.0); HEMATOCRIT. 41.8 % (42.0-52.0); HEMOGLOBIN. 14.1 g/dL (14.0-18.0); MEAN CORPUSCULAR HEMOGLOBIN 30.6 pg (28.0-32.0); MEAN CORPUSCULAR VOLUME 90.9 fL (80.0-94.0); MEAN PLATELET VOLUME 8.6 fl (7.4-10.4); MONOCYTES % 7.8 % (2.0-8.0); NEUTROPHILS % 65.5 % (40.0-76.0); PLATELET 274 x1000/uL (130-400); RED CELL DISTRIBUTION WIDTH 14.4 % (11.6-14.6)
[2020-11-15 00:20] LABS: CHLORIDE 107 mEq/L (98-107)
[2020-11-15 00:23] LABS: ETHANOL BLOOD < 10 mg/dL
[2020-11-15] MEDS ORDERED: DIPHENHYDRAMINE 50MG/ML VIAL IM PRN (02:45)
[2020-11-15] MEDS ORDERED: LORAZEPAM 2MG/ML CPJ IM PRN (02:45)
[2020-11-15] MEDS ORDERED: HALOPERIDOL LACTATE 5MG/ML VIAL IM ONE (02:45)
[2020-11-15 05:25] LABS: CLARITY URINE CLEAR (CLEAR); COLOR URINE YELLOW (YELLOW); KETONES URINE NEGATIVE (NEGATIVE); LEUKOCYTE ESTERASE URINE NEGATIVE (NEGATIVE); NITRITE URINE NEGATIVE (NEGATIVE); OCCULT BLOOD URINE NEGATIVE (NEGATIVE); PH URINE 5.5 (4.5-8.0); PROTEIN URINE NEGATIVE (NEGATIVE); SPECIFIC GRAVITY URINE 1.025 (1.005-1.030); UROBILINOGEN URINE 0.2 E.U./dL (0.2-1.0)
[2020-11-15 05:40] LABS: *AMPHETAMINES SCREEN URINE NEGATIVE (NEGATIVE); *BARBITURATES SCREEN URINE NEGATIVE (NEGATIVE); *COCAINE SCREEN URINE NEGATIVE (NEGATIVE)
[2020-11-15 05:41] LABS: *BENZODIAZEPINES SCREEN URINE NEGATIVE (NEGATIVE); CANNABINOID URINE SCREEN NEGATIVE (NEGATIVE); METHADONE URINE SCREEN NEGATIVE (NEGATIVE); OPIATES URINE SCREEN NEGATIVE (NEGATIVE); PHENCYCLIDINE URINE SCREEN PRESUMTIVE POSITIVE (NEGATIVE)
[2020-11-15 22:00] VITALS: BP 120/55
== END 2020-11-15 22:34 | disposition still patient (30) ==
LOC: ER 21:00
DX: S00.83XA Contusion of other part of head, initial encounter (principal); F12.10 Cannabis abuse, uncomplicated; R45.851 Suicidal ideations; Z20.822 Contact with and (suspected) exposure to COVID-19; Z88.8 Allergy status to other drugs, medicaments and biological substances; Y04.0XXA Assault by unarmed brawl or fight, initial encounter; Y93.89 Activity, other specified; Y92.89 Other specified places as the place of occurrence of the external cause; Y99.8 Other external cause status
CPT/HCPCS: 36415; 70450; 70486; 80053; 80305; 80307; 80320; 80329; 81003; 85025; 87426; 96372; 99285; J1200; J1630; J2060; Z7610; G0480

== ENCOUNTER 2021-03-12 12:43 | Inpatient (IN) | payer MEDICAID ==
[~2021-03-12] VITALS: Ht 205.7 cm; Wt 187.3 kg
[~2021-03-12 12:43] MED LIST changes: +ACET-2708 MT
[2021-03-12] MEDS ORDERED: METHYLPREDNISOLONE SOD SUCC 125 MG/2 ML VIAL IV STA (13:05)
[2021-03-12] MEDS ORDERED: IPRATROPIUM BROMIDE (0.02%) 0.5MG/2.5ML NEB HHN STA (13:05)
[2021-03-12] MEDS ORDERED: MAGNESIUM 2 G PREMIX 50 ML IV ONE (13:15)
[2021-03-12] MEDS ORDERED: ALBUTEROL (0.083%) 2.5MG/3ML NEB HHN SCH (13:30)
[2021-03-12 14:15] LABS: BASOPHILS % 0.3 % (0.0-2.0); EOSINOPHILS % 1.1 % (0.0-5.0); HEMATOCRIT. 48.5 % (42.0-52.0); HEMOGLOBIN. 16.4 g/dL (14.0-18.0); LYMPHOCYTES % 11.5 % (20.0-50.0); MEAN CORPUSCULAR HEMOGLOBIN 30.4 pg (28.0-32.0); MEAN CORPUSCULAR VOLUME 90.3 fL (80.0-94.0); MEAN PLATELET VOLUME 8.3 fl (7.4-10.4); MONOCYTES % 6.5 % (2.0-8.0); NEUTROPHILS % 80.6 % (40.0-76.0); PLATELET 321 x1000/uL (130-400); RED BLOOD CELL COUNT 5.37 mill/uL (4.7-6.1); RED CELL DISTRIBUTION WIDTH 14.4 % (11.6-14.6)
[2021-03-12] MEDS ORDERED: PIPERACILLIN/TAZ 3.375G PREMIX 50 ML IV ONE (14:45)
[2021-03-12 14:47] LABS: CHLORIDE 99 mEq/L (98-107)
[2021-03-12] MEDS ORDERED: SODIUM CHLORIDE 0.9% 1,000 ML IV ONE (15:00)
[2021-03-12 17:04] LABS: CLARITY URINE CLEAR (CLEAR); COLOR URINE YELLOW (YELLOW); KETONES URINE NEGATIVE (NEGATIVE); LEUKOCYTE ESTERASE URINE NEGATIVE (NEGATIVE); NITRITE URINE NEGATIVE (NEGATIVE); OCCULT BLOOD URINE NEGATIVE (NEGATIVE); PH URINE 5.5 (4.5-8.0); PROTEIN URINE TRACE (NEGATIVE); SPECIFIC GRAVITY URINE 1.024 (1.005-1.030); UROBILINOGEN URINE 0.2 E.U./dL (0.2-1.0)
[2021-03-12 17:22] LABS: *COCAINE SCREEN URINE NEGATIVE (NEGATIVE)
[2021-03-12 17:23] LABS: *AMPHETAMINES SCREEN URINE PRESUMTIVE POSITIVE (NEGATIVE); *BARBITURATES SCREEN URINE NEGATIVE (NEGATIVE); *BENZODIAZEPINES SCREEN URINE NEGATIVE (NEGATIVE); CANNABINOID URINE SCREEN PRESUMTIVE POSITIVE (NEGATIVE); METHADONE URINE SCREEN NEGATIVE (NEGATIVE); OPIATES URINE SCREEN NEGATIVE (NEGATIVE); PHENCYCLIDINE URINE SCREEN NEGATIVE (NEGATIVE)
[2021-03-12] MEDS ORDERED: ACETAMINOPHEN 650MG/20.3ML UDC GT PRN (17:45)
[2021-03-12] MEDS ORDERED: PIPERACILLIN/TAZOBACTAM 3.375 G in DEXTROSE 5% WATER 50 ML IV SCH (17:45)
[2021-03-12] MEDS ORDERED: LEVETIRACETAM 500MG PREMIX 100 ML IV SCH (18:31)
[2021-03-12] MEDS ORDERED: ALBUTEROL (0.083%) 2.5MG/3ML NEB HHN NR (19:45)
[2021-03-12] MEDS ORDERED: CLONIDINE 0.1MG TABLET PO PRN (19:45)
[2021-03-12] MEDS: METHYLPREDNISOLONE SOD SUCC 40 MG/ML VIAL IV SCH (21:45)
[2021-03-12 23:59] VITALS: BP 145/76
[2021-03-13] VITALS: BP 145/76
[2021-03-13] MEDS: PIPERACILLIN/TAZOBACTAM 3.375G in DEXT 5% WATER 50ML IV SCH ×4 (01:09→23:22)
[2021-03-13 04:00] VITALS: BP 133/79
[2021-03-13] MEDS: METHYLPREDNISOLONE SOD SUCC 40 MG/ML VIAL IV SCH ×2 (05:09→14:13)
[2021-03-13 06:49] LABS: BASOPHILS % 0.1 % (0.0-2.0); EOSINOPHILS % 0.5 % (0.0-5.0); HEMATOCRIT. 45.1 % (42.0-52.0); MEAN CORPUSCULAR HEMOGLOBIN 30.4 pg (28.0-32.0); MEAN CORPUSCULAR VOLUME 91.3 fL (80.0-94.0); MEAN PLATELET VOLUME 8.6 fl (7.4-10.4); MONOCYTES % 2.7 % (2.0-8.0); NEUTROPHILS % 88.7 % (40.0-76.0); PLATELET 313 x1000/uL (130-400); RED BLOOD CELL COUNT 4.94 mill/uL (4.7-6.1); RED CELL DISTRIBUTION WIDTH 14.6 % (11.6-14.6)
[2021-03-13 07:20] LABS: CHLORIDE 100 mEq/L (98-107)
[2021-03-13 08:00] VITALS: BP 145/78
[2021-03-13] MEDS ORDERED: LEVETIRACETAM 500MG PREMIX 100 ML IV SCH (09:30)
[2021-03-13 12:00] VITALS: BP 121/76
[2021-03-13] MEDS ORDERED: PNEUMOCOCCAL 23-VAL P-SAC VAC 0.5 ML IM ONE (12:00)
[2021-03-13] MEDS ORDERED: INFLUENZA VACCINE 05/PF 0.5 ML SYRINGE IM ONE (12:00)
[2021-03-13] MEDS: ALBUTEROL (0.083%) 2.5MG/3ML NEB HHN SCH ×2 (13:12→20:12)
[2021-03-13] MEDS: LAMOTRIGINE 25MG TABLET PO SCH (14:11)
[2021-03-13] MEDS: RISPERIDONE 1MG TABLET PO SCH ×2 (14:11→20:29)
[2021-03-13 16:00] VITALS: BP 128/53
[2021-03-13 20:00] VITALS: BP 100/55
[2021-03-13] MEDS: LEVETIRACETAM 500MG TABLET PO SCH (20:33)
[2021-03-14 00:20] VITALS: BP 135/65
[2021-03-14] MEDS: ALBUTEROL (0.083%) 2.5MG/3ML NEB HHN SCH ×3 (00:42→13:18)
[2021-03-14 04:00] VITALS: BP 140/60
[2021-03-14] MEDS: PIPERACILLIN/TAZOBACTAM 3.375G in DEXT 5% WATER 50ML IV SCH ×2 (05:43→14:50)
[2021-03-14 06:36] LABS: BASOPHILS % 0.1 % (0.0-2.0); EOSINOPHILS % 0.3 % (0.0-5.0); HEMOGLOBIN. 14.1 g/dL (14.0-18.0); LYMPHOCYTES % 8.8 % (20.0-50.0); MEAN CORPUSCULAR HEMOGLOBIN 29.8 pg (28.0-32.0); MEAN CORPUSCULAR VOLUME 90.9 fL (80.0-94.0); MEAN PLATELET VOLUME 8.8 fl (7.4-10.4); MONOCYTES % 5.5 % (2.0-8.0); NEUTROPHILS % 85.3 % (40.0-76.0); PLATELET 286 x1000/uL (130-400); RED BLOOD CELL COUNT 4.73 mill/uL (4.7-6.1); RED CELL DISTRIBUTION WIDTH 14.2 % (11.6-14.6)
[2021-03-14 06:45] LABS: CHLORIDE 100 mEq/L (98-107)
[2021-03-14 08:00] VITALS: BP 144/74
[2021-03-14] MEDS ORDERED: METHYLPREDNISOLONE SOD SUCC 40 MG/ML VIAL IV SCH (09:00)
[2021-03-14] MEDS: RISPERIDONE 1MG TABLET PO SCH (09:49)
[2021-03-14] MEDS: LAMOTRIGINE 25MG TABLET PO SCH (09:49)
[2021-03-14] MEDS: LEVETIRACETAM 500MG TABLET PO SCH (10:02)
[2021-03-14 12:00] VITALS: BP 137/75
[2021-03-14] MEDS ORDERED: LORAZEPAM 2MG/ML CPJ IV PRN (14:45)
== END 2021-03-14 16:07 | disposition left against medical advice (07) | DRG 140 ==
LOC: ER 12:43 → EDBEDREQTM 16:10 → EDBEDREQ 16:10 → MICUSO 20:14 → 6WST 22:11
PROVIDERS: ADMIT Internal Medicine; ATTEND Internal Medicine
DX: J44.1 Chronic obstructive pulmonary disease with (acute) exacerbation (principal); F25.9 Schizoaffective disorder, unspecified; E66.01 Morbid (severe) obesity due to excess calories; F31.60 Bipolar disorder, current episode mixed, unspecified; D72.829 Elevated white blood cell count, unspecified; G40.909 Epilepsy, unspecified, not intractable, without status epilepticus; J45.901 Unspecified asthma with (acute) exacerbation; Z79.84 Long term (current) use of oral hypoglycemic drugs; Z79.899 Other long term (current) drug therapy; Z59.00 Homelessness unspecified; Z86.73 Personal history of transient ischemic attack (TIA), and cerebral infarction without residual deficits; Z87.891 Personal history of nicotine dependence; Z68.41 Body mass index [BMI] 40.0-44.9, adult; Z88.8 Allergy status to other drugs, medicaments and biological substances; Z85.9 Personal history of malignant neoplasm, unspecified
CPT/HCPCS: 36415; 71045; 80048; 80053; 80305; 81003; 83605; 83880; 84145; 84484; 85025; 85379; 90686; 90732; 93005; 93306; 94640; 99291; C1893; J1953; J2060; J2543; J2920; J2930; J3475; J7040; J7060

== ENCOUNTER 2021-03-27 16:06 | Emergency (ER) | payer MEDICAID ==
[~2021-03-27] VITALS: Ht 177.8 cm; Wt 170.0 kg
[2021-03-27] MEDS ORDERED: KETOROLAC 30MG/ML VIAL IV STA (17:36)
[2021-03-27 18:42] LABS: BASOPHILS % 0.6 % (0.0-2.0); EOSINOPHILS % 1.8 % (0.0-5.0); HEMATOCRIT. 41.4 % (42.0-52.0); HEMOGLOBIN. 13.8 g/dL (14.0-18.0); LYMPHOCYTES % 19.7 % (20.0-50.0); MEAN CORPUSCULAR HEMOGLOBIN 30.4 pg (28.0-32.0); MEAN CORPUSCULAR VOLUME 91.1 fL (80.0-94.0); MEAN PLATELET VOLUME 9.1 fl (7.4-10.4); MONOCYTES % 8.3 % (2.0-8.0); NEUTROPHILS % 69.6 % (40.0-76.0); PLATELET 196 x1000/uL (130-400); RED BLOOD CELL COUNT 4.55 mill/uL (4.7-6.1)
[2021-03-27 18:50] LABS: CHLORIDE 105 mEq/L (98-107)
[2021-03-27 18:55] LABS: ETHANOL BLOOD < 10 mg/dL
[2021-03-27] MEDS ORDERED: IBUP-2028 MT (19:58)
[2021-03-27 20:00] VITALS: BP 125/45
[2021-04-04] MEDS ORDERED: IBUP-2028 MT (13:47)
[2021-04-10] MEDS ORDERED: KEPP500 MT ×3 (22:03→22:19)
== END 2021-03-27 20:40 | disposition home or self-care (01) ==
LOC: ER 16:06
DX: R56.9 Unspecified convulsions (principal); F17.290 Nicotine dependence, other tobacco product, uncomplicated; Z88.5 Allergy status to narcotic agent; Z86.59 Personal history of other mental and behavioral disorders; Z86.73 Personal history of transient ischemic attack (TIA), and cerebral infarction without residual deficits
CPT/HCPCS: 36415; 70450; 71045; 80053; 80320; 84484; 85025; 93971; 96374; 99285; 99406; J1885; G0480

== ENCOUNTER 2021-04-04 10:52 | Emergency (ER) | payer MEDICAID ==
[~2021-04-04] VITALS: Ht 167.6 cm; Wt 150.0 kg
[~2021-04-04 10:52] MED LIST changes: +IBUP-2028 MT
[2021-04-04] MEDS ORDERED: ACETAMINOPHEN 325MG TABLET PO STA (11:16)
[2021-04-04] MEDS ORDERED: IBUP-2028 MT ×2 (13:47)
[2021-04-04 18:05] VITALS: BP 113/61
== END 2021-04-04 18:18 | disposition home or self-care (01) ==
LOC: ER 11:05
DX: R07.9 Chest pain, unspecified (principal); F32.9 Major depressive disorder, single episode, unspecified; F20.9 Schizophrenia, unspecified; R56.9 Unspecified convulsions; I69.354 Hemiplegia and hemiparesis following cerebral infarction affecting left non-dominant side; Z85.9 Personal history of malignant neoplasm, unspecified; Z88.8 Allergy status to other drugs, medicaments and biological substances
CPT/HCPCS: 71045; 93005; 99285

== ENCOUNTER 2021-04-06 15:47 | Emergency (ER) | payer MEDICAID ==
[~2021-04-06] VITALS: Ht 182.9 cm; Wt 125.0 kg
[2021-04-06] MEDS ORDERED: ONDANSETRON HCL 4MG/2ML INJ IV STA (16:26)
[2021-04-06] MEDS ORDERED: SODIUM CHLORIDE 0.9% 1,000 ML IV ONE (16:30)
[2021-04-06 17:41] LABS: HEMATOCRIT. 44.9 % (42.0-52.0); HEMOGLOBIN. 14.8 g/dL (14.0-18.0); MEAN CORPUSCULAR HEMOGLOBIN 30.1 pg (28.0-32.0); MEAN CORPUSCULAR VOLUME 91.3 fL (80.0-94.0); MEAN PLATELET VOLUME 9.6 fl (7.4-10.4); PLATELET 231 x1000/uL (130-400); RED BLOOD CELL COUNT 4.92 mill/uL (4.7-6.1)
[2021-04-06] MEDS ORDERED: ONDANSETRON 4MG ODT PO ONE (17:45)
[2021-04-06 17:47] LABS: CHLORIDE 101 mEq/L (98-107)
[2021-04-06 18:03] LABS: CLARITY URINE CLEAR (CLEAR); COLOR URINE YELLOW (YELLOW); KETONES URINE NEGATIVE (NEGATIVE); LEUKOCYTE ESTERASE URINE NEGATIVE (NEGATIVE); NITRITE URINE NEGATIVE (NEGATIVE); OCCULT BLOOD URINE NEGATIVE (NEGATIVE); PROTEIN URINE NEGATIVE (NEGATIVE); SPECIFIC GRAVITY URINE 1.021 (1.005-1.030)
[2021-04-06 19:06] VITALS: BP 123/83
[2021-04-06 19:26] LABS: PLATELET ESTIMATE NORMAL
== END 2021-04-06 19:12 | disposition home or self-care (01) ==
LOC: ER 15:47
DX: R11.10 Vomiting, unspecified (principal); Z88.5 Allergy status to narcotic agent; Z86.59 Personal history of other mental and behavioral disorders
CPT/HCPCS: 36415; 71045; 80053; 81003; 84484; 85025; 93005; 99285; J7030; Q0162

== ENCOUNTER 2021-04-10 19:39 | Emergency (ER) | payer MEDICAID ==
[~2021-04-10] VITALS: Ht 170.2 cm; Wt 137.0 kg
[2021-04-10] MEDS ORDERED: LEVETIRACETAM 500MG TABLET PO ONE (20:15)
[2021-04-10] MEDS ORDERED: GABAPENTIN 100MG CAPSULE PO ONE (20:15)
[2021-04-10 20:32] LABS: BASOPHILS % 0.7 % (0.0-2.0); EOSINOPHILS % 3.1 % (0.0-5.0); HEMATOCRIT. 41.6 % (42.0-52.0); HEMOGLOBIN. 14.1 g/dL (14.0-18.0); LYMPHOCYTES % 24.1 % (20.0-50.0); MEAN CORPUSCULAR HEMOGLOBIN 30.5 pg (28.0-32.0); MEAN CORPUSCULAR VOLUME 89.9 fL (80.0-94.0); MEAN PLATELET VOLUME 8.4 fl (7.4-10.4); MONOCYTES % 7.9 % (2.0-8.0); NEUTROPHILS % 64.2 % (40.0-76.0); PLATELET 247 x1000/uL (130-400); RED BLOOD CELL COUNT 4.63 mill/uL (4.7-6.1); RED CELL DISTRIBUTION WIDTH 14.7 % (11.6-14.6)
[2021-04-10 20:37] LABS: CHLORIDE 107 mEq/L (98-107)
[2021-04-10] MEDS ORDERED: KEPP500 MT ×4 (22:03→22:19)
[2021-04-10] MEDS ORDERED: GABA-529 MT ×3 (22:03→22:19)
[2021-04-10 22:20] VITALS: BP 122/84
== END 2021-04-10 22:22 | disposition home or self-care (01) ==
LOC: ER 19:39
DX: G40.909 Epilepsy, unspecified, not intractable, without status epilepticus (principal); R07.89 Other chest pain; F17.200 Nicotine dependence, unspecified, uncomplicated; Z88.5 Allergy status to narcotic agent; Z79.899 Other long term (current) drug therapy; Z86.73 Personal history of transient ischemic attack (TIA), and cerebral infarction without residual deficits; Z98.890 Other specified postprocedural states
CPT/HCPCS: 36415; 80053; 84484; 85025; 99284

== ENCOUNTER 2021-04-21 09:33 | Inpatient (IN) | payer MEDICAID ==
[~2021-04-21] VITALS: Ht 195.6 cm; Wt 196.9 kg
[~2021-04-21 09:33] MED LIST changes: +GABA-529 MT; +KEPP500 MT
[2021-04-21] MEDS ORDERED: SODIUM CHLORIDE 0.9% 1000ML BAG (SEPSIS BOLUS) IV ONE (10:30)
[2021-04-21] MEDS ORDERED: MORPHINE SULFATE 4 MG/ML CPJ (NOT FOR IM USE) IV ONE ×2 (10:30→14:30)
[2021-04-21] MEDS ORDERED: ONDANSETRON HCL 4MG/2ML INJ IV ONE ×2 (10:30→14:30)
[2021-04-21] MEDS ORDERED: PIPERACILLIN/TAZ 3.375G PREMIX 50 ML IV ONE (11:00)
[2021-04-21] MEDS ORDERED: CLINDAMYCIN 600 MG in DEXTROSE 5% WATER 50 ML IV ONE (11:00)
[2021-04-21] MEDS ORDERED: CLINDAMYCIN 600MG PREMIX 50 ML IV SCH (11:30)
[2021-04-21 12:04] LABS: CHLORIDE 105 mEq/L (98-107)
[2021-04-21 14:11] LABS: BASOPHILS % 0.2 % (0.0-2.0); EOSINOPHILS % 1.1 % (0.0-5.0); HEMATOCRIT. 44.7 % (42.0-52.0); HEMOGLOBIN. 14.4 g/dL (14.0-18.0); MEAN CORPUSCULAR HEMOGLOBIN 29.5 pg (28.0-32.0); MEAN CORPUSCULAR VOLUME 91.5 fL (80.0-94.0); MEAN PLATELET VOLUME 9.3 fl (7.4-10.4); MONOCYTES % 7.2 % (2.0-8.0); NEUTROPHILS % 78.5 % (40.0-76.0); PLATELET 256 x1000/uL (130-400); RED BLOOD CELL COUNT 4.89 mill/uL (4.7-6.1); RED CELL DISTRIBUTION WIDTH 14.3 % (11.6-14.6)
[2021-04-21 14:17] LABS: PROTHROMBIN TIME 10.9 sec (9.6-11.0)
[2021-04-21 17:06] LABS: CLARITY URINE CLEAR (CLEAR); COLOR URINE YELLOW (YELLOW); KETONES URINE NEGATIVE (NEGATIVE); LEUKOCYTE ESTERASE URINE TRACE (NEGATIVE); NITRITE URINE NEGATIVE (NEGATIVE); OCCULT BLOOD URINE NEGATIVE (NEGATIVE); PH URINE 5.5 (4.5-8.0); PROTEIN URINE NEGATIVE (NEGATIVE); SPECIFIC GRAVITY URINE 1.026 (1.005-1.030); UROBILINOGEN URINE 0.2 E.U./dL (0.2-1.0)
[2021-04-21 17:19] LABS: *AMPHETAMINES SCREEN URINE NEGATIVE (NEGATIVE); *BARBITURATES SCREEN URINE NEGATIVE (NEGATIVE); *COCAINE SCREEN URINE NEGATIVE (NEGATIVE); CANNABINOID URINE SCREEN PRESUMTIVE POSITIVE (NEGATIVE); METHADONE URINE SCREEN NEGATIVE (NEGATIVE); OPIATES URINE SCREEN PRESUMTIVE POSITIVE (NEGATIVE); PHENCYCLIDINE URINE SCREEN NEGATIVE (NEGATIVE)
[2021-04-21 17:20] LABS: *BENZODIAZEPINES SCREEN URINE NEGATIVE (NEGATIVE)
[2021-04-21] MEDS ORDERED: IOHEXOL-300 100 ML BOTTLE ONE (17:34)
[2021-04-21 20:00] VITALS: BP 108/65
[2021-04-21 20:49] VITALS: BP 108/65
[2021-04-21] MEDS ORDERED: LEVE1000 MT (20:54)
[2021-04-21] MEDS ORDERED: OLAN15TA3 PO (20:56)
[2021-04-21] MEDS ORDERED: OLANZAPINE 15 MG PO SCH (21:30)
[2021-04-21] MEDS ORDERED: MEDICATION NOT ON FORMULARY EA (Levetiracetam (Keppra) 1 TAB) MT SCH (21:30)
[2021-04-21] MEDS ORDERED: HYDROCODONE/ACETAMINOPHEN 5/325MG TABLET PO PRN (21:30)
[2021-04-21] MEDS ORDERED: NALOXONE HCL 0.4 MG/ML 1ML VIAL IV PRN (21:45)
[2021-04-21] MEDS: OLANZAPINE 5MG TABLET PO SCH (21:52)
[2021-04-21] MEDS: GABAPENTIN 100MG CAPSULE PO SCH (21:52)
[2021-04-21] MEDS: PHENYTOIN SODIUM EXTENDED 100MG CAPSULE PO SCH (21:52)
[2021-04-21] MEDS: LEVETIRACETAM 500MG TABLET PO SCH (21:53)
[2021-04-21] MEDS ORDERED: GUAIFENESIN 200MG TABLET PO SCH (22:00)
[2021-04-21] MEDS: PIPERACILLIN/TAZOBACTAM 3.375 G in DEXTROSE 5% WATER 50 ML IV SCH (22:22)
[2021-04-22] VITALS: BP 118/59
[2021-04-22 04:00] VITALS: BP 102/71
[2021-04-22] MEDS: PIPERACILLIN/TAZOBACTAM 3.375 G in DEXTROSE 5% WATER 50 ML IV SCH ×3 (05:02→21:16)
[2021-04-22] MEDS: PANTOPRAZOLE 40MG DR TABLET PO SCH (06:32)
[2021-04-22 07:48] LABS: BASOPHILS % 0.5 % (0.0-2.0); EOSINOPHILS % 1.5 % (0.0-5.0); HEMATOCRIT. 44.1 % (42.0-52.0); HEMOGLOBIN. 14.4 g/dL (14.0-18.0); LYMPHOCYTES % 26.3 % (20.0-50.0); MEAN CORPUSCULAR HEMOGLOBIN 29.8 pg (28.0-32.0); MEAN CORPUSCULAR VOLUME 91.5 fL (80.0-94.0); MEAN PLATELET VOLUME 9.8 fl (7.4-10.4); NEUTROPHILS % 62.7 % (40.0-76.0); PLATELET 242 x1000/uL (130-400); RED BLOOD CELL COUNT 4.82 mill/uL (4.7-6.1); RED CELL DISTRIBUTION WIDTH 14.2 % (11.6-14.6)
[2021-04-22 08:00] VITALS: BP 127/73
[2021-04-22 08:02] LABS: CHLORIDE 108 mEq/L (98-107)
[2021-04-22] MEDS ORDERED: ENOXAPARIN 40MG/0.4ML SYR SUBCUT SCH (09:00)
[2021-04-22] MEDS: PHENYTOIN SODIUM EXTENDED 100MG CAPSULE PO SCH ×2 (09:39→17:03)
[2021-04-22] MEDS: GABAPENTIN 100MG CAPSULE PO SCH ×3 (09:39→17:01)
[2021-04-22] MEDS: ENOXAPARIN 40MG/0.4ML SYR SUBCUT SCH ×2 (09:39→21:16)
[2021-04-22] MEDS: LEVETIRACETAM 500MG TABLET PO SCH ×2 (09:40→17:02)
[2021-04-22] MEDS: OLANZAPINE 5MG TABLET PO SCH ×2 (09:40→17:01)
[2021-04-22] MEDS: NYSTATIN POWDER 15GM TOP SCH ×3 (09:40→21:16)
[2021-04-22 12:00] VITALS: BP 120/57
[2021-04-22] MEDS ORDERED: VANCOMYCIN 2,000 MG in DEXT 5% WATER 500 ML IV NR ×2 (15:00→18:30)
[2021-04-22 16:00] VITALS: BP 137/54
[2021-04-22 20:00] VITALS: BP 111/33
[2021-04-23] VITALS: BP 108/51
[2021-04-23] MEDS: VANCOMYCIN 1250MG in DEXTROSE 5% WATER 250ML IV SCH ×2 (02:02→10:38)
[2021-04-23 04:00] VITALS: BP 125/82
[2021-04-23] MEDS: PIPERACILLIN/TAZOBACTAM 3.375 G in DEXTROSE 5% WATER 50 ML IV SCH ×2 (05:13→13:06)
[2021-04-23] MEDS: PANTOPRAZOLE 40MG DR TABLET PO SCH (05:14)
[2021-04-23] MEDS: NYSTATIN POWDER 15GM TOP SCH ×2 (05:14→13:07)
[2021-04-23 08:00] VITALS: BP 132/53
[2021-04-23] MEDS: OLANZAPINE 5MG TABLET PO SCH (08:48)
[2021-04-23] MEDS: PHENYTOIN SODIUM EXTENDED 100MG CAPSULE PO SCH (08:49)
[2021-04-23] MEDS: ENOXAPARIN 40MG/0.4ML SYR SUBCUT SCH (08:49)
[2021-04-23] MEDS: LEVETIRACETAM 500MG TABLET PO SCH (08:49)
[2021-04-23] MEDS: GABAPENTIN 100MG CAPSULE PO SCH ×2 (08:49→12:19)
[2021-04-23 12:00] VITALS: BP 117/56
[2021-04-24] MEDS ORDERED: FAMOTIDINE 20MG TABLET PO SCH (07:10)
== END 2021-04-23 16:15 | disposition left against medical advice (07) | DRG 383 ==
LOC: ER 09:33 → 8WST 16:40 → EDBEDREQ 16:45 → EDBEDREQTM 16:45 → ENRESERV 17:09 → EDBEDREQ 19:37
PROVIDERS: ADMIT Internal Medicine; ATTEND Internal Medicine
DX: L03.314 Cellulitis of groin (principal); Z68.43 Body mass index [BMI] 50.0-59.9, adult; B35.6 Tinea cruris; B37.49 Other urogenital candidiasis; F12.90 Cannabis use, unspecified, uncomplicated; E87.5 Hyperkalemia; F17.200 Nicotine dependence, unspecified, uncomplicated; F19.90 Other psychoactive substance use, unspecified, uncomplicated; F31.9 Bipolar disorder, unspecified; E66.01 Morbid (severe) obesity due to excess calories; Z60.2 Problems related to living alone; G47.33 Obstructive sleep apnea (adult) (pediatric); R33.9 Retention of urine, unspecified; G40.909 Epilepsy, unspecified, not intractable, without status epilepticus; Z59.00 Homelessness unspecified; Z86.73 Personal history of transient ischemic attack (TIA), and cerebral infarction without residual deficits; Z88.8 Allergy status to other drugs, medicaments and biological substances; Z79.899 Other long term (current) drug therapy
CPT/HCPCS: 36415; 74177; 76870; 80048; 80053; 80305; 81003; 83605; 85025; 93976; 99285; J1650; J2270; J2405; J2543; J3370; J3490; J7030; J7060; Q9967

== ENCOUNTER 2021-05-07 19:50 | Emergency (ER) | payer MEDICAID ==
[~2021-05-07] VITALS: Ht 182.9 cm; Wt 136.0 kg
[~2021-05-07 19:50] MED LIST changes: -IBUP-2028 MT; -KEPP500 MT; +LEVE1000 MT; -METF-414; +OLAN15TA3 PO; -RISP1
[2021-05-07 22:48] LABS: BASOPHILS % 0.4 % (0.0-2.0); EOSINOPHILS % 2.6 % (0.0-5.0); HEMATOCRIT. 45.3 % (42.0-52.0); HEMOGLOBIN. 15.2 g/dL (14.0-18.0); LYMPHOCYTES % 15.8 % (20.0-50.0); MEAN CORPUSCULAR HEMOGLOBIN 30.4 pg (28.0-32.0); MEAN CORPUSCULAR VOLUME 90.9 fL (80.0-94.0); MONOCYTES % 5.7 % (2.0-8.0); NEUTROPHILS % 75.5 % (40.0-76.0); PLATELET 248 x1000/uL (130-400); RED BLOOD CELL COUNT 4.98 mill/uL (4.7-6.1); RED CELL DISTRIBUTION WIDTH 14.7 % (11.6-14.6)
[2021-05-07 22:55] LABS: CHLORIDE 103 mEq/L (98-107)
[2021-05-07] MEDS ORDERED: IBUPROFEN 600MG TABLET PO ONE (23:00)
[2021-05-07] MEDS ORDERED: PHENYTOIN SODIUM EXTENDED 100MG CAPSULE PO ONE (23:00)
[2021-05-07 23:03] LABS: CLARITY URINE CLEAR (CLEAR); COLOR URINE YELLOW (YELLOW); KETONES URINE TRACE (NEGATIVE); LEUKOCYTE ESTERASE URINE TRACE (NEGATIVE); NITRITE URINE NEGATIVE (NEGATIVE); OCCULT BLOOD URINE NEGATIVE (NEGATIVE); PROTEIN URINE NEGATIVE (NEGATIVE); SPECIFIC GRAVITY URINE 1.027 (1.005-1.030); UROBILINOGEN URINE 0.2 E.U./dL (0.2-1.0)
[2021-05-07] MEDS ORDERED: IBUP-2029 MT (23:52)
[2021-05-07] MEDS ORDERED: PHEN100C4 MT (23:52)
[2021-05-08 00:26] VITALS: BP 141/81
== END 2021-05-08 00:36 | disposition home or self-care (01) ==
LOC: ER 19:50
DX: S20.212A Contusion of left front wall of thorax, initial encounter (principal); F31.9 Bipolar disorder, unspecified; G40.909 Epilepsy, unspecified, not intractable, without status epilepticus; L03.314 Cellulitis of groin; R33.9 Retention of urine, unspecified; I25.2 Old myocardial infarction; Z79.899 Other long term (current) drug therapy; Z88.8 Allergy status to other drugs, medicaments and biological substances; X58.XXXA Exposure to other specified factors, initial encounter; Y93.89 Activity, other specified; Y92.89 Other specified places as the place of occurrence of the external cause; Y99.8 Other external cause status
CPT/HCPCS: 36415; 71045; 80053; 81003; 85025; 93005; 99285

== ENCOUNTER 2021-05-12 15:45 | Emergency (ER) | payer MEDICAID ==
[~2021-05-12] VITALS: Ht 175.3 cm; Wt 136.0 kg
[~2021-05-12 15:45] MED LIST changes: +IBUP-2029 MT; +PHEN100C4 MT
[2021-05-12 15:51] VITALS: BP 118/61
[2021-05-12] MEDS ORDERED: LEVETIRACETAM 500MG TABLET PO ONE (16:15)
[2021-05-12 17:07] LABS: BASOPHILS % 0.5 % (0.0-2.0); EOSINOPHILS % 1.3 % (0.0-5.0); HEMATOCRIT. 44.6 % (42.0-52.0); HEMOGLOBIN. 14.6 g/dL (14.0-18.0); LYMPHOCYTES % 16.3 % (20.0-50.0); MEAN CORPUSCULAR HEMOGLOBIN 30.1 pg (28.0-32.0); MEAN CORPUSCULAR VOLUME 91.9 fL (80.0-94.0); MEAN PLATELET VOLUME 9.2 fl (7.4-10.4); MONOCYTES % 7.6 % (2.0-8.0); NEUTROPHILS % 74.3 % (40.0-76.0); PLATELET 211 x1000/uL (130-400); RED BLOOD CELL COUNT 4.86 mill/uL (4.7-6.1)
[2021-05-12 17:11] LABS: CHLORIDE 105 mEq/L (98-107)
[2021-05-12 17:15] LABS: ETHANOL BLOOD < 10 mg/dL
[2021-05-12 17:23] LABS: CLARITY URINE CLEAR (CLEAR); COLOR URINE DARK YELLOW (YELLOW); KETONES URINE TRACE (NEGATIVE); LEUKOCYTE ESTERASE URINE NEGATIVE (NEGATIVE); NITRITE URINE NEGATIVE (NEGATIVE); OCCULT BLOOD URINE NEGATIVE (NEGATIVE); PROTEIN URINE NEGATIVE (NEGATIVE); SPECIFIC GRAVITY URINE 1.032 (1.005-1.030)
[2021-05-12 17:36] LABS: *AMPHETAMINES SCREEN URINE NEGATIVE (NEGATIVE); *COCAINE SCREEN URINE NEGATIVE (NEGATIVE); CANNABINOID URINE SCREEN NEGATIVE (NEGATIVE); METHADONE URINE SCREEN NEGATIVE (NEGATIVE); OPIATES URINE SCREEN NEGATIVE (NEGATIVE); PHENCYCLIDINE URINE SCREEN NEGATIVE (NEGATIVE)
[2021-05-12 17:37] LABS: *BARBITURATES SCREEN URINE NEGATIVE (NEGATIVE); *BENZODIAZEPINES SCREEN URINE NEGATIVE (NEGATIVE)
[2021-05-12] MEDS ORDERED: LEVETIRACETAM 500MG TABLET PO SCH (21:00)
[2021-05-12] MEDS ORDERED: PHENYTOIN SODIUM EXTENDED 100MG CAPSULE PO ONE (21:00)
== END 2021-05-12 18:36 | disposition left against medical advice (07) ==
LOC: ER 15:45
DX: F31.9 Bipolar disorder, unspecified (principal); F15.10 Other stimulant abuse, uncomplicated; G40.909 Epilepsy, unspecified, not intractable, without status epilepticus; I25.2 Old myocardial infarction; Z20.822 Contact with and (suspected) exposure to COVID-19; Z86.73 Personal history of transient ischemic attack (TIA), and cerebral infarction without residual deficits; Z88.8 Allergy status to other drugs, medicaments and biological substances
CPT/HCPCS: 36415; 80053; 80305; 80307; 80320; 80329; 81003; 85025; 99283; C9803; U0003; U0005; G0480

== ENCOUNTER 2021-05-31 15:34 | Emergency (ER) | payer MEDICAID ==
[~2021-05-31] VITALS: Ht 172.7 cm; Wt 144.0 kg
[2021-05-31 15:39] VITALS: BP 140/80
[2021-05-31] MEDS ORDERED: ACETAMINOPHEN 325MG TABLET PO ONE (16:00)
[2021-05-31] MEDS ORDERED: LEVE1000 MT (21:04)
[2021-05-31 22:59] LABS: BASOPHILS % 0.3 % (0.0-2.0); EOSINOPHILS % 1.1 % (0.0-5.0); HEMATOCRIT. 44.8 % (42.0-52.0); HEMOGLOBIN. 14.8 g/dL (14.0-18.0); LYMPHOCYTES % 15.8 % (20.0-50.0); MEAN CORPUSCULAR HEMOGLOBIN 29.6 pg (28.0-32.0); MEAN CORPUSCULAR VOLUME 89.7 fL (80.0-94.0); MEAN PLATELET VOLUME 8.4 fl (7.4-10.4); MONOCYTES % 6.4 % (2.0-8.0); NEUTROPHILS % 76.4 % (40.0-76.0); PLATELET 298 x1000/uL (130-400); RED BLOOD CELL COUNT 4.99 mill/uL (4.7-6.1); RED CELL DISTRIBUTION WIDTH 14.3 % (11.6-14.6)
[2021-05-31 23:04] LABS: CHLORIDE 102 mEq/L (98-107)
== END 2021-05-31 20:38 | disposition home or self-care (01) ==
LOC: ER 15:34
DX: R07.89 Other chest pain (principal); F31.9 Bipolar disorder, unspecified; I25.2 Old myocardial infarction; Z86.73 Personal history of transient ischemic attack (TIA), and cerebral infarction without residual deficits; Z79.899 Other long term (current) drug therapy
CPT/HCPCS: 36415; 71045; 73030; 80053; 84484; 85025; 99284